=== PATIENT | female | born 2000 | race Hispanic/Latino ===

== ENCOUNTER → 2020-07-16 | Outpatient (CLI) | payer SELFPAY | LOC: M LABSMTC 11:11 | PROVIDERS: ATTEND Pediatrics | DX: Z20.828 Contact with and (suspected) exposure to other viral communicable diseases (principal) ==

== ENCOUNTER 2023-06-26 04:56 | Inpatient (IN) | payer OTHER, SELFPAY ==
[2023-06-26] VITALS (45 sets, daily range): BP systolic 106–186; BP diastolic 60–109; TEMP 98.5; O2SAT 98
[~2023-06-26] VITALS: Ht 160 cm; Wt 75.4 kg
[2023-06-26] MEDS ORDERED: PREN1CHW6 PO (05:19)
[2023-06-26] MEDS ORDERED: CARBOPROST TROMETHAMINE 250 MCG/ML AMP IM PRN (06:20)
[2023-06-26] MEDS ORDERED: OXYTOCIN INJ 10UNITS/ML 1ML VIAL IM PRN (06:20)
[2023-06-26] MEDS ORDERED: OXYTOCIN DRIP 30 UNITS in IV 1 EA IV SCH (06:20)
[2023-06-26] MEDS ORDERED: LIDOCAINE 1% MDV 20ML VIAL INFIL PRN (06:20)
[2023-06-26] MEDS ORDERED: TRANEXAMIC ACID INJection 1,000 MG in NS 100 ML IV PRN (06:20)
[2023-06-26] MEDS ORDERED: OXYTOCIN DRIP 30 UNITS in IV 1 EA IV PRN ×4 (06:20)
[2023-06-26] MEDS ORDERED: METHYLERGONOVINE MALEATE 0.2MG/ML 1ML VIAL IM PRN (06:20)
[2023-06-26 06:28] LABS: HEMATOCRIT 33.3 % (36.0-47.0); HEMOGLOBIN 11.3 g/dl (12.0-15.5); MEAN CORPUSCULAR HEMOGLOBIN 30.3 pg (27.0-33.0); MEAN CORPUSCULAR HGB CONC 33.9 g/dl (32.0-36.5); MEAN CORPUSCULAR VOLUME 89.3 fl (80.0-96.0); PLATELET COUNT, AUTOMATED 233 10^3/uL (150-450); RED BLOOD COUNT 3.73 10^6/uL (4.00-5.40); WHITE BLOOD COUNT 6.4 10^3/uL (4.0-10.0)
[2023-06-26] MEDS ORDERED: PROMETHAZINE 25MG/ML 1ML VIAL IV PRN (09:20)
[2023-06-26] MEDS ORDERED: NALBUPHINE HCL 1MG/0.1ML (100MG/10ML) MDV IV PRN (09:20)
[2023-06-26] MEDS: LR 1,000 ML IV SCH ×2 (10:02→12:40)
[2023-06-26] MEDS ORDERED: EPIDURAL/PCA KEYS XX PRN (13:00)
[2023-06-26] MEDS ORDERED: diphenhydrAMINE 50MG/ML VIAL IV PRN (13:00)
[2023-06-26] MEDS ORDERED: ONDANSETRON 4MG 2ML VIAL IV PRN (13:00)
[2023-06-26] MEDS ORDERED: LR 500 ML IV PRN (13:00)
[2023-06-26] MEDS ORDERED: NALOXONE INJ 0.4MG/1ML VIAL IV PRN (13:00)
[2023-06-26] MEDS ORDERED: ePHEDrine SULFATE 25 MG/5 ML(5MG/ML) SYRINGE IVP PRN (13:00)
[2023-06-26] MEDS ORDERED: FENTANYL/ROPIVACAINE/NACL BAG 100 ML EPIDURAL SCH (13:00)
[2023-06-26 21:01] LABS: CORD GAS ABE V -8.2; CORD GAS HCO3 V 16.9 MMOL/L; CORD GAS O2 SAT V 67.9 %; CORD GAS PCO2 V 34.5 mmHg; CORD GAS PH V 7.308 UNITS; CORD GAS PO2 V 27.4 mmHg; CORD GAS SBC V 17.3 MMOL/L
[2023-06-26] MEDS ORDERED: DOCUSATE SODIUM 100MG CAPSULE PO PRN (21:15)
[2023-06-26] MEDS ORDERED: MOM 30ML SUSPENSION UDC PO PRN (21:15)
[2023-06-26] MEDS ORDERED: METHYLERGONOVINE MALEATE 0.2 MG TAB PO PRN (21:15)
[2023-06-26] MEDS ORDERED: RHOGAM 300MCG (1500IU) INJ IM SCH (21:15)
[2023-06-27] MEDS: IBUPROFEN 800 MG TAB PO PRN ×2 (05:43→20:20)
[2023-06-27 06:00] VITALS: BP 115/75; O2SAT 99
[2023-06-27] MEDS: PRENATAL VITAMINS CHEWABLE TABLET PO SCH (08:34)
[2023-06-27] MEDS: DIBUCAINE 1% OINTMENT 30GM TOP PRN (08:34)
[2023-06-27 18:00] VITALS: BP 143/87; O2SAT 98
[2023-06-27] MEDS ORDERED: SIMETHICONE 80MG CHEW TAB PO PRN (21:35)
[2023-06-27] MEDS: ACETAMINOPHEN 500 MG TAB PO PRN (22:52)
[2023-06-28 06:37] VITALS: BP 109/59; O2SAT 99
[2023-06-28] MEDS: PRENATAL VITAMINS CHEWABLE TABLET PO SCH (07:37)
[2023-06-28] MEDS: DIBUCAINE 1% OINTMENT 30GM TOP PRN (07:37)
[2023-06-28] MEDS ORDERED: MEASLES,MUMPS,RUBELLA VACCINE INJ (MMR-II) SC.IMMUN ONE (09:00)
[2023-06-28] MEDS: IBUPROFEN 800 MG TAB PO PRN (12:04)
[2023-06-28] MEDS: ACETAMINOPHEN 500 MG TAB PO PRN (17:45)
== END 2023-06-28 18:00 | disposition home or self-care (01) | DRG 807 ==
LOC: M LDO 04:56 → M LDI 06:11 → M OBS 23:40
PROVIDERS: ADMIT Obstetrics & Gynecology; ATTEND Obstetrics & Gynecology
PROC: 10E0XZZ Delivery of Products of Conception, External Approach (ICD-10-PCS; principal; 2023-06-26)
PROC: 0KQM0ZZ Repair Perineum Muscle, Open Approach (ICD-10-PCS; 2023-06-26)
DX: O66.0 Obstructed labor due to shoulder dystocia (principal); Z37.0 Single live birth; Z3A.39 39 weeks gestation of pregnancy; O69.82X0 Labor and delivery complicated by other cord entanglement, without compression, not applicable or unspecified; O70.1 Second degree perineal laceration during delivery